=== PATIENT | male | born 1990 | race Caucasian/White ===

== ENCOUNTER 2018-11-16 07:04 | Day surgery (SDC) | payer OTHER ==
[2018-11-16] MEDS ORDERED: fentaNYL 100 MCG/2 ML VIAL IVP ONE (07:05)
[2018-11-16] MEDS ORDERED: MIDAZOLAM 2 MG/2 ML VIAL IVP ONE (07:05)
[2018-11-16] MEDS ORDERED: NEOSTIGMINE 1 MG/1 ML 10 ML MDV IVP ONE (07:05)
[2018-11-16] MEDS ORDERED: DEXAMETHASONE 4 MG/ML VIAL IVP ONE (07:05)
[2018-11-16] MEDS ORDERED: GLYCOPYRROLATE 1 MG/5 ML VIAL IVP ONE (07:05)
[2018-11-16] MEDS ORDERED: PROPOFOL 200 MG/20 ML VIAL IVP ONE (07:05)
[2018-11-16] MEDS ORDERED: LACTATED RINGERS 1,000 ML IV ONE (07:12)
[2018-11-16] MEDS ORDERED: cefTRIAXone 2 GM VIAL ONE (07:42)
[2018-11-16] MEDS ORDERED: EPINEPHrine 1 MG/ML AMP ONE (07:48)
--- NOTE | 2018-11-16 09:31 | ANESTHESIA ---
Pre-Anesthesia VS, & Labs - Diagnosis R shoulder labral tear - Procedure R shoulder scope with labral repair, possible biceps tenodesis Vital Signs: Temp Pulse Resp BP Pulse Ox 36.8 C 52 L 16 121/69 99 11/16/18 07:12 11/16/18 07:12 11/16/18 07:12 11/16/18 07:12 11/16/18 07:12 Height 5 ft 9 in Weight (kg) 78.4 kg - NPO >8 hours - Lab Results Lab results reviewed: Yes Home Medications and Allergies Home Medications: Ambulatory Orders No Known Home Medications 11/13/18 No Known Home Medications 11/13/18 Allergies/Adverse Reactions: Allergies Allergy/AdvReac Type Severity Reaction Status Date / Time No Known Drug Allergies Allergy Verified 11/13/18 14:12 Anes History & Medical History - Anesthetic History Anesthesia Complications: reports: No previous complications Family history of Anesthesia Complications: Denies Family history of Malignant Hyperthermia: Denies - Medical History Cardiovascular: reports: None Pulmonary: reports: None Gastrointestinal: reports: Other Urinary: reports: None Musculoskeletal: reports: None Endocrine/Autoimmune: reports: None Skin: reports: None - Surgical History Other Past Surgical History: wisdom teeth extraction Exam General: Alert, Oriented x3, Cooperative Dental: WNL Mouth Openin Fingerbreadth Neck Mobility: Normal Mallampati classification: II Thyromental Distance: 4-6 cm Respiratory: Lungs clear, Normal breath sounds, No respiratory distress, No acce ssory muscle use Cardiovascular: Regular rate (mercedes) Neurological: Normal speech Mental/Cognitive Status: Alert/Oriented X3, Normal for patient Cognitive Status: Within normal limits Plan Anesthesia Type: General, Supraclavicular Block Consent for Procedure(s) Verified and Reviewed: Yes Code Status: Attempt Resuscitation ASA classification: 1-Healthy patient Is this case an emergency?: No
[2018-11-16] MEDS ORDERED: ONDANSETRON 4 MG/2 ML VIAL IVP PRN (11:43)
[2018-11-16] MEDS ORDERED: oxyCODONE 5 MG TABLET PO PRN (11:43)
--- NOTE | 2018-11-16 11:48 | OPERATIVE REPORT ---
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 Pendulum exercises 5 times per day. 2-6 weeks-Passive range of motion with the following limits: FF to 120, ER to 30, abduction to 90 6-12 weeks-Active range of motion in all planes without limitation. Isometric rotator cuff strengthening is allowed 12-16 weeks-Gradually increase strengthening 16 weeks and beyond-Introduce dynamic activities EXAMINATION UNDER ANESTHESIA: ROM: Full Anterior load and shift: Crepitus with grade 2 instability Posterior load and shift: Stable Inferior sulcus: Stable ARTHROSCOPIC FINDINGS: Rotator interval: Injected but without tear Biceps tendon & SLAP: Stable anchor without tear Subscapularis: Intact Rotator Cuff: Intact HAGL: None Labrum: Displaced bony Bankart from the anterior glenoid. Tear extended from 6:00 to just above 3:00. 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 It specifically makes it not possible for him to practice martial arts and exercise the way that he would like to. Nonoperative managment failed to resolve symptoms. The risks, benefits, and alternatives were discussed. Risks included pain, bleeding, infection, damage to nearby structures, lack of symptom relief, implant complications, stiffness, need for further surgeries, DVT, PE, stroke, and even . He signed a written consent form. PROCEDURE IN DETAIL: The patient was met in the preoperative holding on the day of the procedure. Operative extremity was signed. Consent was verified. He desired to proceed. Regional anesthesia was obtained in the preoperative area. They were brought to the operating room and surrendered to anesthesia. Once general anesthesia was obtained they were placed in the lateral decubitus position with the operative side up. An axillary roll was placed and all bony prominences were well-padded. They were then prepped and draped in the standard sterile fashion. A surgical timeout was held to confirm the patient procedure, identity, procedure, laterality, allergies, images, and antibiotics. All were in agreement we proceeded. Balanced suspension was applied and a standard diagnostic arthroscopy was performed utilizing posterior and anterior superior portal sites. The anterior superior portal site was created under direct visualization. The findings of the diagnostic arthroscopy can be found above. A mid glenoid portal was then created under direct visualization bordering the subscapularis tendon. I then used a combination of high and low angled elevators to develop the labral tear and release it from off the glenoid neck. The bony Bankart was elevated with the capsule until it was mobile. It encompassed from the 5:00 to the 3 o'clock position. I then used the pineapple rasp to finalize my release and abraded the bone to a bleeding bed. A sucker shaver was placed in the interval to debride any loose tissue and further abrade the glenoid neck. Any loose cartilage was debrided at that time. The muscle fibers of the subscapularis were visualized and the labral cuff was freely mobile en block. I then established a percutaneous 7:00 portal utilizing the Arthrex system. I then placed an anchors at the 6:00 position. The suture was passed using an appropriate 45 degree suture lasso advancing the posterior capsule anteriorly. The labrum was secured using knotless technique. Appropriate tension was confirmed with a probe and the excess suture was cut. Using the same technique additional anchors were placed at 5:00, 4:00, and 3:00. The suture from the 4:00 anchor circumferentially wrapped around the bony portion of the capsule. The 5:00 and 3:00 anchors fixed the capsule just adjacent to the bone. Care was taken to not lateralize the bone.. Proper capsular tension was restored and a labral bumper was recreated. Balanced suspension was then released and final images were taken showing the humeral head centered in the glenoid. The portal sites were then closed with 3-0 Monocryl buried. Mastisol and Steri- Strips were applied. A sterile dressing and a sling was applied. He was awakened and transferred to the recovery room.
[2018-11-16 12:30] VITALS: BP 128/75
== END 2018-11-16 07:05 | disposition home or self-care (01) ==
LOC: SDS 07:04
PROVIDERS: ATTEND Orthopaedic Surgery
PROC: 0RQJ4ZZ Repair Right Shoulder Joint, Percutaneous Endoscopic Approach (ICD-10-PCS; principal; 2018-11-16 08:15)
DX: M24.411 Recurrent dislocation, right shoulder (principal)
CPT/HCPCS: 29806; C1713; J7120